=== PATIENT | female | born 1975 | race African-American/Black ===

== ENCOUNTER 2024-07-08 13:07 | Emergency (ER) | payer OTHER ==
[~2024-07-08] VITALS: Ht 170.2 cm; Wt 66.5 kg
[2024-07-08 13:22] LABS: BILIRUBIN, URINE NEGATIVE (negative); BLOOD/HGB, URINE SMALL (Negative); KETONE, URINE NEGATIVE (Negative); LEUK ESTERASE, URINE SMALL (negative); NITRITE, URINE POSITIVE (negative)
[2024-07-08 13:28] LABS: BACTERIA, URINE 4+ /hpf (negative); EPITHELIAL CELLS, URINE SQUAMOUS 1+ /lpf (0-1+); REFLEX CULTURE, URINE Yes (No); WHITE BLOOD CELLS, URINE >50 /HPF (0-5)
[2024-07-08] MEDS ORDERED: SODIUM CHLORIDE 0.9% 1,000 ML IV ONE (13:30)
[2024-07-08] MEDS ORDERED: KETOROLAC TROMETHAMINE 15 MG/ML VIAL IV ONE (13:30)
[2024-07-08 13:39] LABS: BASOPHILS 0.7 % (0-2); EOSINOPHILS 7.7 % (0-6); HEMATOCRIT 36.9 % (35.0-50.0); HEMOGLOBIN 12.4 g/dL (12.0-18.0); LYMPHOCYTES 8.6 % (24-44); MCH 30.7 (27-36); MCHC 33.7 g/dl (30-36); MCV 91.2 fl (81-99); MONOCYTES 11.3 % (0-12); NEUTROPHILS 71.7 % (39-80); PLATELET COUNT 331 K/uL (140-440); RBC 4.05 M/ul (4.3-5.7); RDW 14.6 (10.5-15.0)
[2024-07-08 13:55] LABS: ALBUMIN 3.4 g/dL (3.4-5.0); ALBUMIN/GLOBULIN RATIO 0.92 (1.1-2.4); ANION GAP 8.8 (7-21); BILIRUBIN, TOTAL 0.4 mg/dL (0.2-1.0); BUN/CREATININE RATIO 10.34 (6.0-28.6); CALCIUM 8.3 mg/dL (8.5-10.1); CREATININE, SERUM 0.87 mg/dL (0.55-1.02); POTASSIUM 3.8 mmol/L (3.5-5.1); PROTEIN, TOTAL 7.1 g/dL (6.4-8.2)
[2024-07-08] MEDS ORDERED: CEFTRIAXONE SODIUM 2 GM in SODIUM CHLORIDE 0.9% 100 ML IV ONE (14:15)
[2024-07-08] MEDS ORDERED: ONDANSETRON ODT4 MG PO (14:21)
[2024-07-08] MEDS ORDERED: HYDROCODON-ACE1 EA10 PO (14:21)
[2024-07-08] MEDS ORDERED: CEFDINIR300 MG PO (14:21)
[2024-07-08] MEDS ORDERED: ondansetron HCL 4 MG/2 ML VIAL IV ONE (15:00)
[2024-07-08] MEDS ORDERED: HYDROmorphone HCL 1 MG/ML SYR IV ONE (15:00)
[2024-07-08 15:50] VITALS: BP 109/84
== END 2024-07-08 15:50 | disposition home or self-care (01) ==
LOC: ED 13:07
PROVIDERS: Emergency Medicine
DX: N12 Tubulo-interstitial nephritis, not specified as acute or chronic (principal)
CPT/HCPCS: 36415; 80053; 81001; 83605; 85025; 87088; 87186; 96374; 96375; 99284-25; J0696; J1171; J1885; J2405; J7030